=== PATIENT | male | born 1990 | race American Indian/Alaskan Native ===

== ENCOUNTER 2016-12-25 12:39 | Emergency (ER) | payer SELFPAY ==
--- NOTE | 2016-12-25 22:05 | Emergency Department Report ---
HPI - General Chief Complaint: Seizure Time Seen by Provider: 12/25/16 21:53 - HPI HPI: This is a 26-year-old Afro-[place] male presents the emergency department by EMS from work where the patient had a witnessed seizure. The patient actually has video on his phone, sent in by coworkers, who taped the seizure. The seizure lasted for about 1 minute. Unknown postictal time. Patient is currently awake and alert and is been in the emergency department since noon. He did not receive anything for his symptoms prior to presentation nor in route by EMS. Patient denies any diagnosed history of seizures. However the patient has been seen at another emergency department and previously feels like he has had some events that may be considered seizures. In those instances he does not remember them but says he would black out for a few seconds and people tell him that he does this. Currently the patient denies any symptoms but says it is been having intermittent headaches over the past 3 weeks. He is a tobacco smoker and admits to occasional marijuana use. No recent travel or sick contacts at home. He does not have a primary care doctor. ED Past Medical Hx - Past Medical History Previous Medical History?: Yes Hx Seizures: Yes - Surgical History Past Surgical History?: No - Social History Smoking Status: Current Every Day Smoker Substance Use Type: Alcohol, Marijuana - Medications Home Medications: Home Medications Medication Instructions Recorded Confirmed Last Taken Type No Known Home Medications [No 12/25/16 12/25/16 Unknown History Reported Home Medications] ED Review of Systems ROS: Stated complaint: POSS SZ Other details as noted in HPI Comment: All other systems reviewed and negative Constitutional: denies: chills, fever Eyes: denies: eye pain, eye discharge, vision change ENT: denies: ear pain, throat pain Respiratory: denies: cough, shortness of breath, wheezing Cardiovascular: denies: chest pain, palpitations Gastrointestinal: denies: abdominal pain, nausea, diarrhea Genitourinary: denies: urgency, dysuria Musculoskeletal: denies: back pain, joint swelling, arthralgia Skin: denies: rash, lesions Neurological: other (seizures). denies: numbness, paresthesias Physical Exam - Physical Exam Vital Signs: Vital Signs 12/25/16 14:33 Temperature 97.8 F Pulse Rate 64 Respiratory 18 Rate Blood Pressure 122/80 O2 Sat by Pulse 99 Oximetry Physical Exam: GENERAL: The patient is well-developed well-nourished. HEENT: Normocephalic. Atraumatic. Extraocular motions are intact. Patient has moist mucous membranes. Pupils equal reactive to light bilateral. Prolonged but fatigable horizontal nystagmus. NECK: Supple. Trachea is midline. CHEST/LUNGS: Clear to auscultation. There is no respiratory distress noted. HEART/CARDIOVASCULAR: Regular. There is no tachycardia. There is no gallop rub or murmur. ABDOMEN: Abdomen is soft, nontender. Patient has normal bowel sounds. There is no abdominal distention. SKIN: Skin is warm and dry. NEURO: The patient is awake, alert, and oriented. The patient is cooperative. The patient has no focal neurologic deficits. The patient has normal speech. Cranial nerves II through XII grossly intact. MUSCULOSKELETAL: There is no tenderness or deformity. There is no limitation range of motion. There is no evidence of acute injury. Muscle strength 5 out of 5 for upper and lower extremity bilaterally. ED Course Vital Signs 12/25/16 14:33 Temperature 97.8 F Pulse Rate 64 Respiratory 18 Rate Blood Pressure 122/80 O2 Sat by Pulse 99 Oximetry ED Medical Decision Making - Lab Data Result diagrams: 12/25/16 22:11 12/25/16 22:11 - EKG Data -: EKG Interpreted by [facility] EKG shows normal: sinus rhythm, axis, intervals, QRS complexes (LVH), ST-T waves (early repolarization) Rate: bradycardia (52 bpm) - EKG Data When compared to previous EKG there are: previous EKG unavailable Interpretation: LVH, other (early repolarization) - Radiology Data Radiology results: report reviewed CT of the head does not show any acute process including no hemorrhage, mass, shift, diffuse edema or skull fracture. - Medical Decision Making 26-year-old male presents the emergency department after having a witnessed seizure around noon. They should be the video and it does appear to be a tonic- clonic seizure via video. Patient is been awake and alert since being in the emergency department. Patient and EKG that shows LVH and early repolarization but no signs of ST elevation [place]. Patient's labs are unremarkable according no signs of infection in the blood, electrolyte abnormalities, renal insufficiency and glucose abnormalities. Since patient says that he has a history of some intermittent headaches and some seizure-like activity in the past, a CT of the head was done. CT did not show any bleed, shift, mass or any acute process. Patient does not have any current headache or any other current complaints. There are no focal, motor or sensory deficits and his cranial nerves are intact. Patient is been in the emergency department for almost 11 hours and there has been no further seizure-like activity. The patient will be given referrals for primary care and neurology. He will return to the ER if any further seizure-like activity, or any acute distress. - Differential Diagnosis seizure, hyponatremia, thyroid dysfunction, hypoglycemia Critical Care Time: No Critical care attestation.: If time is entered above; I have spent that time in minutes in the direct care of this critically ill patient, excluding procedure time. ED Disposition Clinical Impression: Seizure Disposition: DISCHARGED TO HOME OR SELFCARE Is pt being admited?: No Condition: Stable Instructions: Non-epileptic Seizures (ED) Additional Instructions: Please follow-up with the primary care doctor in the next few days. I've also given you a referral for a local neurologist, Dr. Garrison, to follow up regarding your seizure. Try to stay away from alcohol or any illicit drugs as they will lower your seizure threshold. Return to the emergency department with any further seizure-like activity, or any acute distress. Referrals: PRIMARY MD CAMELIA [Primary Care Provider] - 3-5 Days ANIA SALAZAR MD [Staff Physician] - 3-5 Days BRITTANY GARRISON MD [Staff Physician] - 3-5 Days [facility] [Outside] - 3-5 Days Time of Disposition: 00:13
--- NOTE | 2016-12-25 22:22 | Cat Scan Report ---
FINAL REPORT EXAM: CT HEAD/BRAIN WO CON HISTORY: seizure, headache TECHNIQUE: Standard unenhanced CT of the head at 5.0 millimeter axial increments. PRIORS: None. FINDINGS: The ventricular system is normal in size and configuration. There is no evidence for parenchymal volume loss. There is no evidence for mass lesion, mass effect, midline shift, acute intracranial hemorrhage, or acute ischemia/ infarction. No evidence for acute skull fracture is seen. No abnormality in the overlying scalp soft tissues is seen. Visualized paranasal sinuses are clear. IMPRESSION: Negative CT of the head. No acute intracranial process noted.
[2016-12-25 22:28] LABS: Basophils % (Auto) 1.1 % (0.0-1.8); Eosinophils % (Auto) 0.6 % (0.0-4.3); Hematocrit 44.4 % (35.5-45.6); Hemoglobin 14.8 gm/dl (11.8-15.2); Mean Corpuscular HGB Conc 33 % (32-34); Mean Corpuscular Hemoglobin 29 pg (28-32); Mean Corpuscular Volume 87 fl (84-94); Platelet Count 232 K/mm3 (140-440); Red Blood Count 5.09 M/mm3 (3.65-5.03); Red Cell Distribution Width 13.2 % (13.2-15.2); White Blood Count 9.2 K/mm3 (4.5-11.0)
[2016-12-25 22:46] LABS: Alanine Aminotransferase 22 units/L (7-56); Albumin 4.7 g/dL (3.9-5); Albumin/Globulin Ratio 1.7 %; Alkaline Phosphatase 44 units/L (35-129); Anion Gap 18 mmol/L; Bilirubin,Total 1.3 mg/dL (0.1-1.2); Blood Urea Nitrogen 12 mg/dL (9-20); Calcium 9.6 mg/dL (8.4-10.2); Carbon Dioxide 23 mmol/L (22-30); Chloride 102.1 mmol/L (98-107); Glucose 80 mg/dL (75-100); Potassium 3.9 mmol/L (3.6-5.0); Sodium 139 mmol/L (137-145); Total Protein 7.4 g/dL (6.3-8.2)
[2016-12-26 00:12] VITALS: BP 126/72
== END 2016-12-26 00:23 | disposition home or self-care (01) ==
LOC: ED 12:39
DX: R56.9 Unspecified convulsions (principal); F17.210 Nicotine dependence, cigarettes, uncomplicated; F12.90 Cannabis use, unspecified, uncomplicated
CPT/HCPCS: 36415; 70450; 80053; 82962; 84443; 84484; 85025; 93005; 93010